=== PATIENT | female | born 1995 | race Caucasian/White ===

== ENCOUNTER → 2022-06-29 | Outpatient (CLI) | payer OTHER | LOC: M LABSMTC 10:33 | PROVIDERS: ATTEND Anesthesiology | DX: Z01.812 Encounter for preprocedural laboratory examination (principal); Z11.52 Encounter for screening for COVID-19 ==

== ENCOUNTER 2022-07-02 11:32 | Day surgery (SDC) | payer OTHER ==
[~2022-07-02] VITALS: Ht 149.9 cm; Wt 44.5 kg
[2022-07-02 12:03] LABS: HEMOGLOBIN 10.4 g/dl (12.0-15.5); MEAN CORPUSCULAR HEMOGLOBIN 24.3 pg (27.0-33.0); MEAN CORPUSCULAR HGB CONC 29.7 g/dl (32.0-36.5); MEAN CORPUSCULAR VOLUME 81.8 fl (80.0-96.0); PLATELET COUNT, AUTOMATED 270 10^3/uL (150-450); RED BLOOD COUNT 4.28 10^6/uL (4.00-5.40)
[2022-07-02] MEDS ORDERED: LR 1,000 ML IV SCH ×2 (14:05→17:30)
[2022-07-02] MEDS ORDERED: SUGAMMADEX SODIUM 500 MG/5 ML VIAL (BRIDION) As Ordered ONE (15:27)
[2022-07-02] MEDS ORDERED: propofoL 200 MG/20 ML VIAL As Ordered ONE (15:27)
[2022-07-02] MEDS ORDERED: ROCURONIUM BROMIDE 50MG/5ML VIAL As Ordered ONE (15:27)
[2022-07-02] MEDS ORDERED: LIDOCAINE 2% 100MG/5ML SDV (FOR ANES.) As Ordered ONE (15:27)
[2022-07-02] MEDS ORDERED: ONDANSETRON 4MG 2ML VIAL As Ordered ONE (15:28)
[2022-07-02] MEDS ORDERED: KETOROLAC 60MG 2ML VIAL As Ordered ONE (15:28)
[2022-07-02] MEDS ORDERED: MIDAZOLAM INJ 2MG/2ML VIAL As Ordered ONE (15:33)
[2022-07-02] MEDS ORDERED: fentaNYL 100 MCG/2 ML INJECTION As Ordered ONE (15:33)
[2022-07-02] MEDS ORDERED: ACETAMINOPHEN 1000MG 100ML IV BAG As Ordered ONE (16:06)
[2022-07-02] MEDS ORDERED: BUPIVACAINE/EPIN 0.25% 30ML VIAL As Ordered ONE (16:44)
[2022-07-02] MEDS ORDERED: HYDROMORPHONE HCL 0.5 MG/ 0.5 ML SYRINGE IV PRN (17:30)
[2022-07-02] MEDS ORDERED: ONDANSETRON 4MG 2ML VIAL IV PRN (17:30)
[2022-07-02] MEDS ORDERED: fentaNYL 100 MCG/2 ML INJECTION IV PRN (17:30)
[2022-07-02] MEDS ORDERED: oxyCODONE 5MG TAB PO PRN (17:30)
== END 2022-07-02 19:04 | disposition home or self-care (01) ==
LOC: M SDC 11:32
PROVIDERS: ATTEND Obstetrics & Gynecology
DX: Z30.2 Encounter for sterilization (principal); N92.1 Excessive and frequent menstruation with irregular cycle; K66.0 Peritoneal adhesions (postprocedural) (postinfection); D64.9 Anemia, unspecified; Q85.00 Neurofibromatosis, unspecified; F17.290 Nicotine dependence, other tobacco product, uncomplicated
CPT/HCPCS: 36415; 58563; 58661; 81025; 85027; 86850; 86900; 86901; 88302; 88305; J1100; J2405